=== PATIENT | male | born 1945 | race Caucasian/White ===

== ENCOUNTER 2022-03-05 10:21 | Inpatient (IN) | payer OTHER ==
[~2022-03-05] VITALS: Ht 170.2 cm; Wt 77.1 kg
[2022-03-05 12:58] LABS: Source, Urine Voided
[2022-03-05 13:06] LABS: BASOPHILS ABSOLUTE AUTO 0.06 K/mm3 (0.00-0.23); BASOPHILS PERCENT AUTO 0 % (0-2); EOSINOPHILS ABSOLUTE AUTO 0.03 K/mm3 (0.00-0.68); EOSINOPHILS PERCENT AUTO 0 % (0-6); Hematocrit 46.4 % (37.0-53.0); Hemoglobin 16.1 g/dL (13.5-17.5); IMMATURE GRAN ABSOLUTE AUTO 0.24 K/mm3 (0.00-0.10); IMMATURE GRAN PERCENT AUTO 1 % (0-1); LYMPHOCYTES ABSOLUTE AUTO 0.36 K/mm3 (0.84-5.20); LYMPHOCYTES PERCENT AUTO 2 % (21-46); MONOCYTES ABSOLUTE AUTO 1.71 K/mm3 (0.16-1.47); MONOCYTES PERCENT AUTO 7 % (4-13); Mean Corpuscular HGB 33.3 pg (26.0-34.0); Mean Corpuscular HGB Conc 34.7 g/dL (31.5-36.5); Mean Corpuscular Volume 96 fL (80-100); Mean Platelet Volume 9.7 fL (9.1-12.4); NEUTROPHILS ABSOLUTE AUTO 21.33 K/mm3 (1.96-9.15); NEUTROPHILS PERCENT AUTO 90 % (41-73); Platelet Count 352 K/mm3 (150-400); RDW Coefficient Variation 11.5 % (11.7-14.2); RDW Standard Deviation 40.5 fL (35.1-46.3); Red Blood Cell Count 4.83 M/mm3 (4.30-5.90); White Blood Cell Count 23.73 K/mm3 (4.00-11.30)
[2022-03-05 13:12] LABS: Appearance, Urine Hazy (Clear); Bilirubin, Urine Neg (Neg); Blood, Urine 1+ (Neg); Color, Urine Yellow (P-Yellow); Glucose Qualitative, Urine Neg (Neg); Ketones, Urine Neg (Neg); Leukocyte Esterase, Urine Neg (Neg); Nitrite, Urine Neg (Neg); Protein, Urine 2+ (Neg); Specific Gravity, Urine 1.015 (1.003-1.022); Urobilinogen, Urine NORM (Normal)
[2022-03-05] MEDS ORDERED: LISI5 PO (13:13)
[2022-03-05 13:22] LABS: Albumin, Blood 3.8 g/dL (3.4-5.0); Albumin/Globulin Ratio 0.8 (0.8-1.8); Bilirubin, Total 0.6 mg/dL (0.1-1.0); Bun/Creatinine Ratio 12.7 (12.0-20.0); Calcium, Blood 9.7 mg/dL (8.5-10.1); Creatinine, Blood 1.81 mg/dL (0.60-1.20); Globulin, Blood 4.5 g/dL (2.2-4.0); Potassium, Blood 3.9 mmol/L (3.5-5.5); Total Protein, Blood 8.3 g/dL (6.4-8.2)
[2022-03-05 13:24] LABS: Hyaline Casts 0-2 /lpf (0-2); WBC Cast 0-2 /lpf (0)
[2022-03-05 13:25] LABS: Red Blood Cells, Urine 0-2 /hpf (0-2); Squamous Epithelial Cells Few /hpf (Few)
[2022-03-05 13:27] LABS: Bacteria Mod /hpf
[2022-03-05 13:30] LABS: Mucus Light (0-Heavy)
--- NOTE | 2022-03-05 18:13 | NUR ---
SHIFT SUMMARY/NOTE: PATIENT CAME BACK FROM PACU TODAY AT 1800. POD 0 LAP APPY PATIENT IS A&OX4. VS ARE WNL AND IS ON RA. PATIENT REPORTS SLIGHT DISCOMFORT BUT DENIES THE NEED OF PAIN MEDS AT THIS TIME. HE HAS 3 TOTAL LAP SITES WITH GAUZE AND TEGADERM THAT ARE C/D/I. HIS LEFT LOWER LAP SITE HAS A JIL DRAIN COMING OUT OF IT THAT HIS LIGHT RED OUTPUT WITH THE BULB COMPRESSED. BOWEL TONES ARE HYPOACTIVE. HE IS TOLERATING SMALL AMOUNTS OF PO INTAKE. PATIENT IS LAYING IN BED WITH CALL LIGHT IN REACH.
--- NOTE | 2022-03-06 03:38 | NUR ---
POD1 FOR A LAP APPY. X3 LAP SITES ARE C/D/I, JIL DRAIN IS COMPRESSED. MINIMAL MILKY RED SS DRAINAGE NOTED. VSS. PT SLEPT ON AND OFF T/O THE NIGHT. PAIN CONTROLLED WITH NORCO. PT DID NOT GET OOB DUE TO PAIN. VOIDING INTO URINAL W/O DIFFICULTY. PASSING MINIMAL FLATTUS. TOLLERATING CLEAR PO INTAKE W/O N/V. PLAN FOR PT TO ADVANCE DIET AND CONTINUE ABX THERAPY. THE PATIENT IS CURRENTLY RESTING IN BED, IN NO DISTRESS, CALL LIGHT IN REACH.
[2022-03-06 05:28] LABS: BASOPHILS ABSOLUTE AUTO 0.03 K/mm3 (0.00-0.23); BASOPHILS PERCENT AUTO 0 % (0-2); EOSINOPHILS ABSOLUTE AUTO 0.01 K/mm3 (0.00-0.68); EOSINOPHILS PERCENT AUTO 0 % (0-6); Hematocrit 36.6 % (37.0-53.0); Hemoglobin 12.9 g/dL (13.5-17.5); IMMATURE GRAN ABSOLUTE AUTO 0.17 K/mm3 (0.00-0.10); IMMATURE GRAN PERCENT AUTO 1 % (0-1); LYMPHOCYTES ABSOLUTE AUTO 0.53 K/mm3 (0.84-5.20); LYMPHOCYTES PERCENT AUTO 3 % (21-46); MONOCYTES ABSOLUTE AUTO 0.99 K/mm3 (0.16-1.47); MONOCYTES PERCENT AUTO 5 % (4-13); Mean Corpuscular HGB 33.6 pg (26.0-34.0); Mean Corpuscular HGB Conc 35.2 g/dL (31.5-36.5); Mean Corpuscular Volume 95 fL (80-100); Mean Platelet Volume 10.4 fL (9.1-12.4); NEUTROPHILS ABSOLUTE AUTO 19.08 K/mm3 (1.96-9.15); NEUTROPHILS PERCENT AUTO 92 % (41-73); Platelet Count 291 K/mm3 (150-400); RDW Coefficient Variation 11.4 % (11.7-14.2); RDW Standard Deviation 39.9 fL (35.1-46.3); Red Blood Cell Count 3.84 M/mm3 (4.30-5.90); White Blood Cell Count 20.81 K/mm3 (4.00-11.30)
[2022-03-06 05:44] LABS: Bun/Creatinine Ratio 16.6 (12.0-20.0); Calcium, Blood 8.6 mg/dL (8.5-10.1); Creatinine, Blood 1.63 mg/dL (0.60-1.20); Potassium, Blood 4.1 mmol/L (3.5-5.5)
--- NOTE | 2022-03-06 07:05 | NUR ---
ROOM AIR TRIAL 88% ON RA. 1L NC INCREASED O2 SATS TO 92%
--- NOTE | 2022-03-06 17:51 | NUR ---
SHIFT SUMMARY STRUGGLED w/ N/V THIS AM BUT THAT HAS RESOLVED. WAS VERY RESISTANT TO AMBULATE BUT ONCE HE AGREED, WAS EASILY ABLE TO AMBULATE IN HALLWAY w/ MIN ASSIST. JIL DRAIN HAS MINIMAL OUTPUT. NOT PASSING MUCH GAS & C/O INTERMITTENT HICCUPS.
[2022-03-07 05:36] LABS: BASOPHILS ABSOLUTE AUTO 0.02 K/mm3 (0.00-0.23); BASOPHILS PERCENT AUTO 0 % (0-2); EOSINOPHILS PERCENT AUTO 0 % (0-6); Hemoglobin 12.1 g/dL (13.5-17.5); IMMATURE GRAN ABSOLUTE AUTO 0.17 K/mm3 (0.00-0.10); IMMATURE GRAN PERCENT AUTO 1 % (0-1); LYMPHOCYTES ABSOLUTE AUTO 0.61 K/mm3 (0.84-5.20); LYMPHOCYTES PERCENT AUTO 3 % (21-46); MONOCYTES ABSOLUTE AUTO 1.62 K/mm3 (0.16-1.47); MONOCYTES PERCENT AUTO 8 % (4-13); Mean Corpuscular HGB 33.5 pg (26.0-34.0); Mean Corpuscular HGB Conc 34.6 g/dL (31.5-36.5); Mean Corpuscular Volume 97 fL (80-100); Mean Platelet Volume 10.6 fL (9.1-12.4); NEUTROPHILS ABSOLUTE AUTO 17.51 K/mm3 (1.96-9.15); NEUTROPHILS PERCENT AUTO 88 % (41-73); Platelet Count 325 K/mm3 (150-400); RDW Coefficient Variation 11.5 % (11.7-14.2); RDW Standard Deviation 40.9 fL (35.1-46.3); Red Blood Cell Count 3.61 M/mm3 (4.30-5.90); White Blood Cell Count 19.93 K/mm3 (4.00-11.30)
[2022-03-07 06:06] LABS: Bun/Creatinine Ratio 21.7 (12.0-20.0); Calcium, Blood 8.6 mg/dL (8.5-10.1); Creatinine, Blood 1.2 mg/dL (0.60-1.20); Magnesium, Blood 1.8 mg/dL (1.6-2.4); Phosphorus, Blood 2.6 mg/dL (2.5-4.9)
--- NOTE | 2022-03-07 07:19 | NUR ---
POD 1 S/P LAP APPY. PT VSS T/O NIGHT. INCISIONS CDI. JIL PUT OUT 20ML CLOUDY SS DRNG. PT REP MILD NAUSEA EARLY IN SHIFT, REP RELIEF AFTER ZOFRAN GIVEN. PO INTAKE MINIMAL, IVF CONT PER ORDERS. ABD SOFT TO PALP, BT ACTIVE, PT REP NO FLATUS YET. PT IS VOIDING URINE W/O DIFFICULTY. AMBULATION ENC, PT DECLINED TO WALK DURING NIGHT, STATES HE PLANS TO AMB THIS AM. BEDSIDE REPORT GIVEN TO Scottie ORELLANA RN.
--- NOTE | 2022-03-07 15:23 | NUR ---
Pt. is awake in bed and welcomes my visit. Pt. is pleasant and has no pressing concerns. Facilitate a life review and Pt. displays some evidence of latent grief after the passing of several family members in a short period of time. Through theraputic listening and a calming presence Pt. displays evidence of coping and trust. Some friends arrive and togher we praye for/with Pt. Pt. verbalized gratitude for the spiritual care visit.
--- NOTE | 2022-03-07 18:31 | NUR ---
SHIFT SUMMARY WAS ABLE TO AMBULATE x 2 TODAY IN HALLWAYS. DENIES N/V T/O SHIFT. FULL LQ DINNER GIVEN & HAS DONE WELL SO FAR. HICCUPS HAVE STOPPED FOR NOW. REPORTS SMALL AMOUNT SOF GAS. JIL DRAIN w/ MINIMAL OUTPUT.
[2022-03-08 06:59] LABS: Calcium, Blood 8.6 mg/dL (8.5-10.1); Creatinine, Blood 0.95 mg/dL (0.60-1.20); Potassium, Blood 3.6 mmol/L (3.5-5.5)
--- NOTE | 2022-03-08 07:27 | NUR ---
POD 3 S/P LAP APPY. INCISIONS CDI. JIL PUT OUT SMALL AMT CLOUDY SS DRNG. PAIN MGD W/2 NORCO W/REP RELIEF. PT CHRISTOPHER FL PO, DENIED N/V, BT ACTIVE, PT REP +FLATUS. PT AMB IN HALLS X1, CHRISTOPHER WELL. PLAN TO CONT ABX AND DC HOME TOMORROW.
[2022-03-08 10:06] LABS: BASOPHILS ABSOLUTE AUTO 0.02 K/mm3 (0.00-0.23); BASOPHILS PERCENT AUTO 0 % (0-2); EOSINOPHILS ABSOLUTE AUTO 0.29 K/mm3 (0.00-0.68); EOSINOPHILS PERCENT AUTO 2 % (0-6); Hematocrit 39.5 % (37.0-53.0); Hemoglobin 13.7 g/dL (13.5-17.5); IMMATURE GRAN ABSOLUTE AUTO 0.05 K/mm3 (0.00-0.10); IMMATURE GRAN PERCENT AUTO 0 % (0-1); LYMPHOCYTES ABSOLUTE AUTO 0.84 K/mm3 (0.84-5.20); LYMPHOCYTES PERCENT AUTO 6 % (21-46); MONOCYTES ABSOLUTE AUTO 1.51 K/mm3 (0.16-1.47); MONOCYTES PERCENT AUTO 11 % (4-13); Mean Corpuscular HGB 33.3 pg (26.0-34.0); Mean Corpuscular HGB Conc 34.7 g/dL (31.5-36.5); Mean Corpuscular Volume 96 fL (80-100); Mean Platelet Volume 10.6 fL (9.1-12.4); NEUTROPHILS ABSOLUTE AUTO 11.36 K/mm3 (1.96-9.15); NEUTROPHILS PERCENT AUTO 81 % (41-73); Platelet Count 379 K/mm3 (150-400); RDW Coefficient Variation 11.5 % (11.7-14.2); RDW Standard Deviation 40.4 fL (35.1-46.3); Red Blood Cell Count 4.11 M/mm3 (4.30-5.90); White Blood Cell Count 14.07 K/mm3 (4.00-11.30)
--- NOTE | 2022-03-08 18:02 | NUR ---
SHIFT SUMMARY PT HAS DONE WELL TODAY. ACTIVITY INCREASED. BM x 1. TOLERATING REG DIET BUT DOESN'T CARE FOR THE TASTE OF THE FOOD SO ISN'T EATING MUCH. DENIES N/V OR INCREASE IN ABD PAIN POST MEALS. JIL DRAIN AMOUNT TRENDING UP & HAS CHANGED FROM SS TO YELLOW IN COLOR.
[2022-03-09 05:19] LABS: BASOPHILS ABSOLUTE AUTO 0.05 K/mm3 (0.00-0.23); BASOPHILS PERCENT AUTO 0 % (0-2); EOSINOPHILS ABSOLUTE AUTO 0.59 K/mm3 (0.00-0.68); EOSINOPHILS PERCENT AUTO 5 % (0-6); Hematocrit 37.6 % (37.0-53.0); Hemoglobin 13.3 g/dL (13.5-17.5); IMMATURE GRAN ABSOLUTE AUTO 0.13 K/mm3 (0.00-0.10); IMMATURE GRAN PERCENT AUTO 1 % (0-1); LYMPHOCYTES ABSOLUTE AUTO 0.67 K/mm3 (0.84-5.20); LYMPHOCYTES PERCENT AUTO 5 % (21-46); MONOCYTES ABSOLUTE AUTO 1.67 K/mm3 (0.16-1.47); MONOCYTES PERCENT AUTO 13 % (4-13); Mean Corpuscular HGB 32.8 pg (26.0-34.0); Mean Corpuscular HGB Conc 35.4 g/dL (31.5-36.5); Mean Corpuscular Volume 93 fL (80-100); NEUTROPHILS ABSOLUTE AUTO 9.87 K/mm3 (1.96-9.15); NEUTROPHILS PERCENT AUTO 76 % (41-73); Platelet Count 369 K/mm3 (150-400); RDW Coefficient Variation 11.4 % (11.7-14.2); RDW Standard Deviation 38.7 fL (35.1-46.3); Red Blood Cell Count 4.05 M/mm3 (4.30-5.90); White Blood Cell Count 12.98 K/mm3 (4.00-11.30)
--- NOTE | 2022-03-09 06:27 | NUR ---
POD 4 S/P LAP APPY. PT VSS T/O NIGHT. INCISIONS CDI. JIL PUT OUT 60ML SEROUS DRNG. PAIN MGD PER EMAR. PT CHRISTOPHER PO, DENIED N/V, REP +FLATUS. PT INDEP IN ROOM, CHRISTOPHER WELL. IV ABX CONT PER ORDERS
[2022-03-09] MEDS ORDERED: HYDR1TAB94 PO (10:40)
[2022-03-09] MEDS ORDERED: LEVFLO500 PO (10:40)
--- NOTE | 2022-03-09 16:49 | NUR ---
DISCHARGE SUMMARY DISCUSSED DISCHARGE INFORMATION WITH PT INCLUDING HOME CARE, MEDICATION CHANGES AND FOLLOW UP APPOITMENTS. PROVIDED CONTACT INFORMATION FOR ANY QUESTIONS AFTER DISCHARGE. REMVOED IV ACCESS DEVICE FROM [facility]. PT LEFT AMBULATORY TO GO HOME WITH HIS BROTHER.
== END 2022-03-09 16:02 | disposition home or self-care (01) | DRG 339 ==
LOC: ER 10:21 → SURS 14:02
PROVIDERS: Emergency Medicine; Physician Assistant; Surgery; ADMIT Surgery
PROC: 0DTJ4ZZ Resection of Appendix, Percutaneous Endoscopic Approach (ICD-10-PCS; principal; 2022-03-07)
DX: K35.32 Acute appendicitis with perforation, localized peritonitis, and gangrene, without abscess (principal); N17.9 Acute kidney failure, unspecified; Z28.21 Immunization not carried out because of patient refusal; I10 Essential (primary) hypertension; E86.0 Dehydration; Z85.46 Personal history of malignant neoplasm of prostate; Z88.0 Allergy status to penicillin; Z79.899 Other long term (current) drug therapy
CPT/HCPCS: 36415; 71046; 74176; 80048; 80053; 81001; 83690; 83735; 84100; 85025; 87086; 88304; 93005; 93010; 96374; 99285-25; A9270; J1100; J1650; J1885; J1956; J2405; J2704; J2795; J3010; J7030; J7120